=== PATIENT | female | born 2000 | race Caucasian/White ===

== ENCOUNTER 2023-08-22 08:36 | Emergency (ER) | payer OTHER, SELFPAY ==
[2023-08-22 08:45] VITALS: BP 123/66; PULSE 99; RESP 20; TEMP 37; O2SAT 98; BMI 19.0
--- NOTE | 2023-08-22 08:52 | ED.ABDPAIN ---
HPI - Abdominal Pain General Chief Complaint: Abdominal Pain Stated Complaint: mass in ABD NVD, Headache Time Seen by Provider: 08/22/23 08:51 Source: patient Mode of arrival: Ambulatory Limitations: no limitations History of Present Illness HPI narrative: 22-year-old female with no reported medical issues who presents with complaint of some nausea but no vomiting, loose stools, sensation of abdominal mass in her abdomen around the umbilicus sometimes on the left sometimes on right. Patient states it has sometimes been uncomfortable but not regularly. She denies fevers or chills today has had some subjectively. She denies chest pain or shortness of breath. No syncope but has felt lightheaded. She states stools have been looser but not black or bloody. Patient has not had any dysuria urgency or frequency. She has irregular menses. Patient states no daily medications, no prior surgeries. No known drug allergies, occasional tobacco, occasional alcohol, occasional marijuana but no other recreational drugs. Patient went into the walk-in clinic was seen and referred here. Patient is trying to set up primary care in [place] where she lives but has not done so. Symptoms has been for several months but she was prompted to come to day by her family. Related Data Home Medications Medication Instructions Recorded Confirmed No Known Home Medications 08/21/23 08/21/23 Allergies Allergy/AdvReac Type Severity Reaction Status Date / Time No Known Drug Allergies Allergy Unverified 08/21/23 18:49 Review of Systems Review of Systems ROS Unobtainable: All systems reviewed & are unremarkable except as noted in HPI and below Patient History Social History Smoking Status: Current some day smoker Smoking Status: Current some day smoker alcohol intake frequency: 0-2 drinks per day Substance Use Type: does not use Exam Narrative Exam Narrative: GENERAL: Alert and oriented x three, thin, well-appearing female in mild distress. HEENT: Head normocephalic, atraumatic, EOMI, pupils reactive, face symmetric, moist mucous membranes NECK: Supple, full range of motion CARDIOVASCULAR: Regular rate and rhythm without murmurs, rubs or gallops. RESPIRATORY: Breath sounds equal bilaterally, no wheezes rales or rhonchi. ABDOMEN: Soft, nontender. Nondistended. Normoactive bowel sounds all 4 quadrants. No guarding or rebound, rigidity, no palpable mass, no hepatosplenomegaly. : No CVA tenderness EXTREMITIES: Normal range of motion, no clubbing or edema. Neurovascularly intact NEUROLOGICAL: Cranial nerves II through XII grossly intact. Moving all extremities SKIN: Warm, dry, no petechiae, no rashes or lesions. Initial Vital Signs Initial Vital Signs: Vital Signs Temperature 98.6 F 08/22/23 08:45 Pulse Rate 99 H 08/22/23 08:45 Respiratory Rate 20 08/22/23 08:45 Blood Pressure 123/66 08/22/23 08:45 Pulse Oximetry 98 08/22/23 08:45 Oxygen Delivery Method Room Air 08/22/23 08:45 Course Orders Ordered: ED Orders 08/22/23 10:40 Urine Microscopic Stat Vital Signs Vital signs: Vital Signs - 8 hr 08/22/23 11:25 Blood Pressure 100/66 MDM - Abdominal Pain Lab Data 08/22/23 09:40 08/22/23 09:40 Labs: Lab Results 08/22/23 08/22/23 Range/Units 09:40 10:40 WBC 4.6 (4.5-11.0) X10^3/uL RBC 3.81 L (4.0-5.2) X10^6/uL Hgb 12.3 (12.0-16.0) g/dL Hct 35.0 L (36-46) % MCV 91.7 (80-100) fL MCH 32.2 (26-34) PG MCHC 35.1 (30-36) % RDW 12.6 (11.6-14.8) % Plt Count 136 L (150-400) X10^3/uL Neut % (Auto) 62.4 (50-75) % Lymph % (Auto) 16.1 L (25-40) % [place] % (Auto) 20.1 H (3-14) % Eos % (Auto) 0.7 L (2-4) % Baso % (Auto) 0.7 (0-2) % Neut # (Auto) 2900 (0311-1721) /uL Lymph # (Auto) 700 L (4301-1286) /uL [place] # (Auto) 900 (0-900) /uL Eos # (Auto) 0 (0-450) /uL Baso # (Auto) 0 (0-100) /uL Sodium 134 L (137-145) mmol/L Potassium 3.6 (3.4-5.1) mmol/L Chloride 102 (98-107) mmol/L Carbon Dioxide 25 (22-32) mmol/L BUN 7 (7-17) mg/dL Creatinine 0.67 (0.52-1.04) mg/dL Estimated GFR > 60 (>60) mL/min BUN/Creatinine Ratio 10.4 (6-22) Glucose 101 H (70-100) mg/dL Calcium 9.2 (8.4-10.2) mg/dL Total Bilirubin 0.5 (0.2-1.3) mg/dL AST 31 (14-36) IU/L ALT 20 (<35) IU/L Alkaline Phosphatase 61 (38-126) U/L Total Protein 7.6 (6.3-8.2) g/dL Albumin 4.5 (3.5-5.0) g/dL Globulin 3.1 (1.7-4.1) g/dL Albumin/Globulin Ratio 1.5 (1.0-2.8) Lipase 62 (23-300) U/L Urine RBC 0-1/hpf (0-5/HPF) Urine WBC 0-1/hpf (0-5/HPF) Ur Squamous Epith Cells 1-5 /hpf (0-5/HPF) Urine Bacteria Few (2-10) H (None) Ur Culture Indicated? Cult not indicated Vol Urine Centrifuged 10ml (spun) Point of care testing: Point of Care Testing Test Results Negative Urine Dip Bedside Urine Glucose Negative Bedside Urine Bilirubin - Negative Bedside Urine Ketone + 15 Urine Specific [employer] 1.005 Bedside Urine Occult Blood +/- Bedside Urine pH 6.0 Bedside Urine Protein - Negative Bedside Urine Urobilinogen - Negative Bedside Urine Nitrite - Negative Bedside Urine Leukocytes - Negative Esterase MDM Narrative Medical decision making narrative: 22-year-old female with complaint of some mild nausea, intermittent abdominal discomfort loose stools but no black or bloody stools. Patient felt she had mass, none was visualized on ultrasound and has a normal ultrasound otherwise I do not have any palpable masses on examination. Labs of white count of 4.6 hemoglobin of 12.3 platelets 136, patient does have elevated monocytes. Sodium 134 potassium 3.6 chloride of 102 CO2 of 25 BUN 7 creatinine 0.67, glucose of 101 LFTs are negative. Abdominal ultrasound is normal Urine sample, is negative, point of care shows some ketones. Patient's platelets are slightly low she does have a predominance of monocytes she was encouraged to follow-up for recheck of labs and further workup. Discharge Plan Departure Patient Disposition: Home Clinical Impression: Thrombocytopenia Activity Restrictions/Additional Instructions: Follow-up for recheck. Your labs do reflect slightly low platelets or thrombocytopenia and a predominance of monocytes. They should be rechecked by primary next couple of weeks. Please call to set up an appointment. Please return for fevers, vomiting, no abdominal back or flank pain, black or bloody stools, passing out or other new or concerning changes. Prescriptions: No Action No Known Home Medications Referrals: Miscellaneous,Doctor, [Primary Care Provider] - Stand Alone Forms: Patient Portal/API
--- NOTE | 2023-08-22 09:00 | DI.US.S_ITS ---
PROCEDURE: US ABDOMEN COMPLETE INDICATIONS: complaint of abd mass TECHNIQUE: Real-time scanning was performed of the abdominal and retroperitoneal organs, with image documentation. COMPARISON: None. FINDINGS: Liver: Liver is normal in size and homogeneous in echotexture. Gallbladder: Sonolucent without evidence cholelithiasis, gallbladder wall thickening or pericholecystic fluid. No sonographic [place] sign. Biliary ducts: Intrahepatic bile ducts are non-dilated. Extrahepatic bile duct caliber measures 2.3 mm. Normal is 6-7 mm or less in diameter, or 10 mm or less post-cholecystectomy. Pancreas: Visualized portions of the pancreas are sonographically normal. Spleen: Spleen is normal in size and homogeneous in echotexture. Kidneys: Kidneys are normal in size and echotexture. Right kidney measures 11.8 cm long; left kidney measures 10.8 cm long. No hydronephrosis or nephrolithiasis. No solid masses. Aorta: Visualized aorta is normal in caliber at less than 3 cm. Iliacs: Proximal common iliac arteries are normal in caliber at less than 2.5 cm. IVC: Intrahepatic inferior vena cava is patent. Miscellaneous: No free abdominal fluid. IMPRESSION: Unremarkable ultrasound abdomen Approved by: Junior Tan M.D. on 08/22/2023 at 9:01
[2023-08-22 09:48] LABS: Add Manual Diff / Slide Review NO; Basophils Absolute Auto 0 /uL (0-100); Basophils Percent Auto 0.7 % (0-2); Eosinophils Absolute Auto 0 /uL (0-450); Eosinophils Percent Auto 0.7 % (2-4); Hemoglobin 12.3 g/dL (12.0-16.0); Lymphocytes Absolute Auto 700 /uL (1100-4500); Lymphocytes Percent Auto 16.1 % (25-40); Mean Corpuscular HGB Conc 35.1 % (30-36); Mean Corpuscular Hemoglobin 32.2 PG (26-34); Mean Corpuscular Volume 91.7 fL (80-100); Monocytes Absolute Auto 900 /uL (0-900); Monocytes Percent Auto 20.1 % (3-14); Neutrophils Absolute Auto 2900 /uL (1500-7000); Neutrophils Percent Auto 62.4 % (50-75); Platelet Count 136 X10^3/uL (150-400); Red Blood Cell Count 3.81 X10^6/uL (4.0-5.2); Red Cell Distribution Width 12.6 % (11.6-14.8); White Blood Cell Count 4.6 X10^3/uL (4.5-11.0)
[2023-08-22 10:03] LABS: Alanine Aminotransferase 20 IU/L (<35); Albumin 4.5 g/dL (3.5-5.0); Albumin Globulin Ratio 1.5 (1.0-2.8); Alkaline Phosphatase 61 U/L (38-126); Aspartate Aminotransferase 31 IU/L (14-36); BUN Creatinine Ratio 10.4 (6-22); Bilirubin Total 0.5 mg/dL (0.2-1.3); Blood Urea Nitrogen 7 mg/dL (7-17); Calcium 9.2 mg/dL (8.4-10.2); Carbon Dioxide 25 mmol/L (22-32); Chloride 102 mmol/L (98-107); Estimated Glomerular Filt Rate > 60 mL/min (>60); Globulin 3.1 g/dL (1.7-4.1); Glucose 101 mg/dL (70-100); HEMOLYSIS < 15 (0-50); Lipase 62 U/L (23-300); Potassium 3.6 mmol/L (3.4-5.1); Sodium 134 mmol/L (137-145); Total Protein 7.6 g/dL (6.3-8.2)
[2023-08-22 11:25] VITALS: BP 100/66
[2023-08-22 12:33] LABS: Bacteria Urine Few (2-10); Culture Indicated Urine Cult Not Indicated; RBC Urine 0-1/HPF (0-5/HPF); Squamous Epithelial Cell Urine 1-5 /HPF (0-5/HPF); Urine Volume 10mL (spun); WBC Urine 0-1/HPF (0-5/HPF)
== END 2023-08-22 11:25 | disposition home or self-care (01) ==
PROVIDERS: Emergency Provider Emergency Medicine
DX: D69.6 Thrombocytopenia, unspecified (principal); R10.9 Unspecified abdominal pain; R11.0 Nausea
CPT/HCPCS: 36415; 76700; 80053; 81003; 81015; 81025; 83690; 85025; 99283

== ENCOUNTER 2023-08-25 15:27 | Emergency (ER) | payer OTHER, SELFPAY ==
[2023-08-25 15:30] VITALS: BP 116/68; PULSE 85; RESP 16; TEMP 36.8; O2SAT 99; BMI 19.0
--- NOTE | 2023-08-25 15:50 | PC.NURSE ---
Pt states that she is having abd & neck pain today. She noticed that she had a rash on her torso and abd. pt seen in ED a few days ago with negative work up. Reports that she has recently returned from [place] within the last 6 week and has concerns for mono and/or parasite. Pt states that her partner is not having any of the same sx at this time. Pt a&ox4.
--- NOTE | 2023-08-25 16:23 | ED_ITS ---
HPI - Abdominal Pain <Yulisa Soto PA-C - Last Filed: 08/25/23 18:52> General Chief Complaint: Abdominal Pain Stated Complaint: NVD, Neck Pain, rashes Time Seen by Provider: 08/25/23 15:38 Source: patient Mode of arrival: Ambulatory History of Present Illness HPI narrative: 22-year-old female with no reported past medical history presents to the ED with 2 weeks of decreased appetite, abdominal pain after eating, burping swollen lymph nodes in the neck and in the groin, fatigue. Patient also states that starting yesterday, she developed some rash on her belly and back. Patient endorses diarrhea for 3 weeks. Patient has had recent travel to [place], was in [place] all of May and June, returned about 4-6 weeks ago. Patient was seen in the ED 3 days ago, had blood work without acute findings and an abdominal ultrasound without acute findings. Patient states that since then, she has had the rashes develop and is feeling more fatigued. Denies vomiting. Patient states that she did have some fever for 4 days when her illness started 2 weeks ago. Patient states that while in [place], she and her partner did have bouts of diarrhea, which were addressed by the Cipro that they had on hand. Related Data Home Medications Medication Instructions Recorded Confirmed No Known Home Medications 08/21/23 08/21/23 Allergies Allergy/AdvReac Type Severity Reaction Status Date / Time No Known Drug Allergies Allergy Unverified 08/21/23 18:49 Review of Systems <Yulisa Soto PA-C - Last Filed: 08/25/23 18:52> Constitutional Constitutional: Denies chills, Reports fatigue, Denies fever(s), Denies frequent falls, Denies lethargy and Denies weakness Eyes Eyes: Denies change in vision, Denies eye discharge, Denies irritation and Denies loss of vision ENT Ears, Nose, Mouth, and Throat: Denies change in voice, Denies dizziness, Denies neck pain, Reports sore throat and Denies throat swelling Cardiovascular Cardiovascular: Denies chest pain, Denies irregular heart rhythm, Denies lightheadedness, Denies palpitations, Denies dyspnea, Denies dyspnea on exertion and Denies orthopnea Respiratory Respiratory: Denies cough, Denies dyspnea, Denies dyspnea on exertion and Denies wheezing Gastrointestinal Gastrointestinal: Reports abdominal pain, Denies change in bowel habits, Reports diarrhea, Reports nausea and Denies vomiting Musculoskeletal Musculoskeletal: Denies neck pain and Denies numbness Integumentary/Breasts Skin/Breast: Denies pruritus, Denies erythema, Reports rash and Denies wounds Neurologic Neurologic: Denies behavioral changes, Denies confusion, Denies dizziness, Denies frequent falls, Denies loss of vision, Denies numbness and Denies weakness Psychiatric Psychiatric: Denies anxiety, Denies behavioral changes, Denies confusion, Denies depression, Denies homicidal ideation and Denies suicidal ideation Endocrine Endocrine: Reports fatigue, Denies flushing and Denies palpitations Hematologic/Lymphatic Hematologic/Lymphatic: Denies easy bruising Allergic/Immunologic Allergic/Immunologic: Denies urticaria, Denies throat swelling and Denies wheezing Patient History <Yulisa Soto PA-C - Last Filed: 08/25/23 18:52> Social History Smoking Status: Current some day smoker Smoking Status: Current some day smoker alcohol intake frequency: 0-2 drinks per day Substance Use Type: does not use Exam <Yulisa Soto PA-C - Last Filed: 08/25/23 18:52> Narrative Exam Narrative: Const General:?cooperative, healthy appearing and comfortable [facility] Head:?normal to inspection Ears:?hearing grossly normal bilaterally Nose:?external nose normal Face and sinus:?normal facial exam and sinuses nontender Mouth:?oral mucosae normal Throat:?posterior oropharynx normal Eyes General:?appearance normal, both eyes and all related structures Neck Neck:?normal visual inspection and no lymphadenopathy noted Resp Effort & Inspection:?normal respiratory effort Auscultation:?clear to auscultation bilaterally Cardio Rate:?regular rate Rhythm:?regular rhythm GI Abdomen is soft, nondistended, nontender to palpation. There are some erythematous, discrete rashes consistent with a fungal infection. Neuro General:?patient alert, patient awake and patient oriented x3 Initial Vital Signs Initial Vital Signs: Vital Signs Temperature 98.2 F 08/25/23 15:30 Pulse Rate 85 08/25/23 15:30 Respiratory Rate 16 08/25/23 15:30 Blood Pressure 116/68 08/25/23 15:30 Pulse Oximetry 99 08/25/23 15:30 Oxygen Delivery Method Room Air 08/25/23 15:30 <Saeed Ford DO - Last Filed: 08/26/23 07:03> Initial Vital Signs Initial Vital Signs: Vital Signs Temperature 98.2 F 08/25/23 15:30 Pulse Rate 85 08/25/23 15:30 Respiratory Rate 16 08/25/23 15:30 Blood Pressure 116/68 08/25/23 15:30 Pulse Oximetry 99 08/25/23 15:30 Oxygen Delivery Method Room Air 08/25/23 15:30 Course <RIGOBERTO Jasso Last Filed: 08/25/23 18:52> Orders Ordered: ED Orders 08/25/23 16:35 Stool Culture Stat 08/25/23 18:36 Monotest Stat Vital Signs Vital signs: Vital Signs - 8 hr 08/25/23 15:30 Temperature 98.2 F Pulse Rate 85 Respiratory Rate 16 Blood Pressure 116/68 Pulse Oximetry 99 Oxygen Delivery Method Room Air <Saeed Ford DO - Last Filed: 08/26/23 07:03> Orders Ordered: ED Orders 08/25/23 16:35 Stool Culture Stat 08/25/23 18:36 Monotest Stat Vital Signs Vital signs: Vital Signs - 8 hr 08/25/23 15:30 Temperature 98.2 F Pulse Rate 85 Respiratory Rate 16 Blood Pressure 116/68 Pulse Oximetry 99 Oxygen Delivery Method Room Air MDM - Abdominal Pain <RIGOBERTO Jasso Last Filed: 08/25/23 18:52> Lab Data Labs: Lab Results 08/25/23 Range/Units 18:47 Monoscreen Negative (Negative) MDM Narrative Medical decision making narrative: 22-year-old female with no reported past medical history presents to the ED with 2 weeks of decreased appetite, abdominal pain after eating, burping swollen lymph nodes in the neck and in the groin, fatigue. Concern for gastroenteritis versus GERD versus gastritis versus H pylori infection versus parasitic infection versus fungal infection versus other. Will obtain ova and parasite exam, stool culture. Rash is consistent with fungal infection and will treat with [id number] topical fungal cream. Patient was unable to provide a stool sample while in the ED. Outpatient lab slip given to patient with tests ordered for stool studies including culture and sensitivity, Gram stain, ova and parasites, H pylori. Patient requested a mono test which was also ordered. Will call patient if the test is positive. Discussed precautions such as no contact sports in case of positive mono test. Patient understands there is no specific treatment for it. Recommend follow-up with PCP as soon as possible. ED return precautions discussed with patient. Patient verbalized understanding. Medical records reviewed: Yes <Saeed Ford DO - Last Filed: 08/26/23 07:03> Lab Data Labs: Lab Results 08/25/23 Range/Units 18:47 Monoscreen Negative (Negative) Discharge Plan Departure Patient Disposition: Home Clinical Impression: Abdominal pain Qualifiers: Abdominal location: generalized Qualified Code(s): R10.84 - Generalized abdominal pain Instructions: DI for Abdominal Pain-Adult, DI for Dyspepsia Activity Restrictions/Additional Instructions: You were evaluated in the ED today for abdominal pain, diarrhea. Given your recent travel to [place], and continued diarrhea, we have ordered some stool tests that will require you to bring samples back to our outpatient lab. Your mono test was performed and we will call you if it is positive. Even if mono is positive, there is no specific treatment other than precautions to avoid contact sports. Your last looks most consistent with a fungal infection, you may apply a [id number] antifungal cream for 2-3 weeks until the rash resolves. Please follow-up with the PCP as soon as possible. Return to the ED if you have worsening symptoms persistent vomiting. Prescriptions: No Action No Known Home Medications Referrals: Radha,MD Hernan [Primary Care Provider] - Stand Alone Forms: Patient Portal/API ED Sign-out <Saeed Ford DO - Last Filed: 08/26/23 07:03> Cosign ED Attending Cosmaritoature Attestation: Dr Ford Co-Sign Statement: I was available for consultation during this patient's emergency department visit. This chart is signed by myself for administrative purposes only. I did not have direct contact with this patient during this visit. They were seen independently by the APC.
[2023-08-25 18:54] VITALS: BP 109/59; PULSE 84; RESP 16; O2SAT 100
[2023-08-25 19:08] LABS: Monotest Negative (Negative)
== END 2023-08-25 18:59 | disposition home or self-care (01) ==
PROVIDERS: Emergency Provider Student in an Organized Health Care Education/Training Program
DX: R10.84 Generalized abdominal pain (principal); R21 Rash and other nonspecific skin eruption
CPT/HCPCS: 36415; 86318; 99281; 99282

== ENCOUNTER → 2023-08-26 13:22 | Outpatient (CLI) | payer OTHER, SELFPAY | LOC: LAB 13:25 | PROVIDERS: Referring Provider Student in an Organized Health Care Education/Training Program; Visit Provider Student in an Organized Health Care Education/Training Program | DX: B99.9 Unspecified infectious disease (principal); B96.81 Helicobacter pylori [H. pylori] as the cause of diseases classified elsewhere | CPT/HCPCS: 87177; 87338; 87493 ==